=== PATIENT | male | born 1975 ===

== ENCOUNTER 2018-02-06 14:36 | Inpatient (IN) | payer SELFPAY ==
[~2018-02-06] VITALS: Ht 182.9 cm; Wt 84.1 kg
[~2018-02-06 14:36] MED LIST: AMX500CRX PO; DCS100C PO; HYDR-3714 PO; HYDR1TAB66 PO
--- OUTSIDE RECORDS SUMMARY | 2018-02-06 14:43 | XMS REPORT ---
Author CODY Castro [facility] Address [address] [place] [address] Care Team Providers Care Boilermaker Pipe Fitter Name Role Phone CODY HOGUE Unavailable PROBLEMS Unknown Problems ALLERGIES Unknown Allergies SOCIAL HISTORY No smoking Hx information available PLAN OF CARE VITAL SIGNS MEDICATIONS Unknown Medications RESULTS No Results PROCEDURES No Known procedures IMMUNIZATIONS No Known Immunizations
--- OUTSIDE RECORDS SUMMARY | 2018-02-06 14:43 | XMS REPORT ---
Author [facility] Address [address] [place] [address] Care Team Providers Care Depalletizer Operator Name Role Phone CODY HOGUE Unavailable PROBLEMS Type Condition ICD9-CM Code WPA79-AC Code Onset Dates Condition Status SNOMED Code Assessment LUQ pain R10.12 Jul, Active [id number] ALLERGIES Substance Reaction Event Type Date Status N.K.D.A. Unknown Non Drug Allergy Jul, Unknown SOCIAL HISTORY No smoking Hx information available PLAN OF CARE VITAL SIGNS Height 72 in 2016-07-16 Weight 168.0 lbs 2016-07-16 Heart Rate 115 bpm 2016-07-16 Respiratory Rate 18 2016-07-16 BMI 22.78 kg/m2 2016-07-16 Blood pressure systolic 100 mmHg 2016-07-16 Blood pressure diastolic 70 mmHg 2016-07-16 MEDICATIONS Unknown Medications RESULTS Name Result Date Reference Range CMP 2016-07-16 Glucose, Serum 85 65-99 BUN 10 6-24 Creatinine, Serum 0.79 0.76-1.27 eGFR If NonAfricn Am 112 >59 eGFR If Africn Am 130 >59 BUN/Creatinine Ratio 13 9-20 Sodium, Serum 149 134-144 Potassium, Serum 4.1 3.5-5.2 Chloride, Serum 105 97-108 Carbon Dioxide, Total 23 18-29 Calcium, Serum 9.1 8.7-10.2 Protein, Total, Serum 7.2 6.0-8.5 Albumin, Serum 4.4 3.5-5.5 Globulin, Total 2.8 1.5-4.5 A/G Ratio 1.6 1.1-2.5 Bilirubin, Total <0.2 0.0-1.2 Alkaline Phosphatase, S 74 39-117 AST (SGOT) 27 0-40 ALT (SGPT) 23 0-44 CBC 2016-07-16 WBC 7.8 3.4-10.8 RBC 4.94 4.14-5.80 Hemoglobin 17.3 12.6-17.7 Hematocrit 49.9 37.5-51.0 MCV 101 79-97 MCH 35.0 26.6-33.0 MCHC 34.7 31.5-35.7 RDW 14.1 12.3-15.4 Platelets 212 150-379 Neutrophils 51 Lymphs 41 Monocytes 6 Eos 1 Basos 1 Immature Cells Neutrophils (Absolute) 4.1 1.4-7.0 Lymphs (Absolute) 3.2 0.7-3.1 Monocytes(Absolute) 0.4 0.1-0.9 Eos (Absolute) 0.1 0.0-0.4 Baso (Absolute) 0.0 0.0-0.2 Immature Granulocytes 0 Immature Grans (Abs) 0.0 0.0-0.1 NRBC Hematology Comments: PROCEDURES Procedure Date Ordered Related Diagnosis Body Site COMPLETE CBC W/AUTO DIFF WBC Jul 16, 2016 COMPREHEN METABOLIC PANEL Jul 16, 2016 Office Visit, Est Pt., Level 3 Jul 16, 2016 VENIPUNCT, ROUTINE* Jul 16, 2016 IMMUNIZATIONS No Known Immunizations
--- OUTSIDE RECORDS SUMMARY | 2018-02-06 14:43 | XMS REPORT | Continuity of Care Document ---
Author Author [facility] [place] [facility] Address Unknown Phone Unavailable Allergies There is no data. Medications There is no data. Problems Date Dx Coded Attending Type Code Diagnosis Diagnosed By 09/18/2013 CODY HOGUE APRN 521.00 CARIES 09/18/2013 CODY HOGUE APRN 553.1 UMBILICAL HERNIA 09/18/2013 CODY HOGUE APRN V04.81 FLU SHOT 09/18/2013 CODY HOGUE APRN V77.1 visit for: screening exam diabetes mellitus 09/18/2013 ASHLYN SIMON DO 521.00 CARIES 09/18/2013 ASHLYN SIMON DO 553.1 UMBILICAL HERNIA 09/18/2013 ASHLYN SIMON DO V04.81 FLU SHOT 09/18/2013 ASHLYN SIMON DO V77.1 visit for: screening exam diabetes mellitus Procedures Code Description [place] [address] US ABDOMEN ULTRASOUND, LIMITED (SPECIFY ORGAN) 09/18/2013 05869 ROUTINE VENIPUNCTURE 09/23/2013 80275 LIPID PANEL 09/23/2013 00688 CBC 09/23/2013 [id number] GFR CALC (RESULT ONLY) 09/23/2013 91584 CMP 09/23/2013 THYANA THYROID ANALYZER 09/23/2013 General S Kishore Green 09/24/2013 88923 VIT B 12 09/24/2013 70169 FOLATE 09/24/2013 Results There is no data. Encounters ACCT No. Visit Date/Time Discharge Status Pt. Type Provider Facility Loc./Unit Complaint [id number] 09/23/2013 08:26:00 09/23/2013 23:59:59 CLS Outpatient ASHLYN SIMON DO [id number] 09/18/2013 09:23:00 09/18/2013 23:59:59 CLS Outpatient CODY HOGUE APRN [id number] 12/03/2017 09:55:00 12/03/2017 23:59:59 CLS Outpatient CODY HOGUE APRN [facility] [id number] 10/29/2013 06:12:00 10/29/2013 11:07:00 DIS Outpatient [id number] 10/22/2013 09:24:00 10/22/2013 23:59:59 CLS Outpatient [id number] 09/22/2013 07:58:00 09/22/2013 23:59:59 CLS Outpatient
--- OUTSIDE RECORDS SUMMARY | 2018-02-06 14:43 | XMS REPORT ---
Author CODY Castro [facility] Address [address] [place] [address] Care Team Providers Care Community Health Nurse Staff Name Role Phone CODY HOGUE Unavailable PROBLEMS Unknown Problems ALLERGIES Unknown Allergies SOCIAL HISTORY No smoking Hx information available PLAN OF CARE VITAL SIGNS MEDICATIONS Unknown Medications RESULTS No Results PROCEDURES No Known procedures IMMUNIZATIONS No Known Immunizations
[2018-02-06] MEDS ORDERED: LORazepam INJ 2 MG/ML (ATIVAN) VIAL ONE (14:49)
[2018-02-06] MEDS ORDERED: LACTATED RINGERS 1,000 ML IV ONE ×2 (14:52→16:32)
[2018-02-06] MEDS: LORazepam INJ 2 MG/ML (ATIVAN) VIAL IVP ONE ×2 (14:55→15:39)
[2018-02-06 15:04] LABS: BASOPHILS % (AUTO) 0 % (0-10); EOSINOPHILS % (AUTO) 0 % (0-10); HEMATOCRIT 49 % (40-54); HEMOGLOBIN 17.6 G/DL (13.3-17.7); LYMPHOCYTES # (AUTO) 1.6 X 10^3 (1.0-4.0); LYMPHOCYTES % (AUTO) 17 % (12-44); MEAN CORPUSCULAR HEMOGLOBIN 35 PG (25-34); MEAN CORPUSCULAR HGB CONC 36 G/DL (32-36); MEAN CORPUSCULAR VOLUME 97 FL (80-99); MEAN PLATELET VOLUME 10.6 FL (7.4-10.4); MONOCYTES # (AUTO) 1.1 X 10^3 (0.0-1.0); MONOCYTES % (AUTO) 12 % (0-12); NEUTROPHILS # (AUTO) 6.8 X 10^3 (1.8-7.8); NEUTROPHILS % (AUTO) 72 % (42-75); PLATELET COUNT 175 10^3/uL (130-400); RED CELL DISTRIBUTION WIDTH 14.2 % (10.0-14.5); WHITE BLOOD COUNT 9.5 10^3/uL (4.3-11.0)
--- NOTE | 2018-02-06 15:15 | ED General ---
General Chief Complaint: Rect Problems Stated Complaint: HEMRHOIDAL BLEEDING,BP ISSUES Source of Information: Patient Exam Limitations: No Limitations History of Present Illness Date Seen by Provider: Feb 06, 2018 Time Seen by Provider: 14:35 Initial Comments Here with report of alcohol withdrawals and rectal bleeding per evaluation visit with [facility] in [facility]. He reports that he drinks 3 days a week and does not drink for 4 days a week. This last 3 days he's had about a fifth of alcohol a day. He arrives hypertensive and shaking. He has not had anything to drink since yesterday. Reports that he has hemorrhoids and has had them for many years. Also reports that is been drinking for many years. Denies vomiting blood. States stool is dark and has the blood on it from the hemorrhoids. Does note bloody leakage in his underwear. Reports that he wants to stop drinking and needs to stop drinking because he is getting kicked out of his mother's house Timing/Duration: 3-4 Days Severity: Moderate Associated Systoms: No Chest Pain, No Fever/Chills, No Nausea/Vomiting, No Shortness of Air, No Weakness Allergies and Home Medications Allergies Coded Allergies: No Known Drug Allergies (Unverified , 10/29/13) Home Medications Docusate Sodium 100 Mg Capsule, 100 MG PO BID Prescribed by: LACI SIMON on 10/29/13 1017 Hydrocodone Bit/Acetaminophen 1 Each Tablet, 1 EACH PO Q6HR PRN, (Reported) Hydrocodone Bit/Acetaminophen 1 Each Tablet, 1 TAB PO Q4H PRN for PAIN Prescribed by: LACI SIMON on 10/29/13 1017 Patient Home Medication List Home Medication List Reviewed: Yes Review of Systems Constitutional: see HPI, No chills, No fever EENTM: no symptoms reported Respiratory: No cough, No short of breath Cardiovascular: No edema, No palpitations Gastrointestinal: see HPI, No abdominal pain, No diarrhea, No hematemesis Genitourinary: No dysuria, No pain Musculoskeletal: no symptoms reported Skin: no symptoms reported Psychiatric/Neurological: Anxiety, Tremors, Denies Weakness All Other Systems Reviewed Negative Unless Noted: Yes Past Jdtnvms-Koaila-Vpttlg Hx Past Med/Social Hx: Reviewed and Corrections made Patient Social History Alcohol Use: Regular Use Alcohol Beverage of Choice: Whiskey Recreational Drug Use: No Smoking Status: Current Everyday Smoker Recent Foreign Travel: No Contact w/Someone Who Travel: No Immunizations Up To Date Date of Influenza Vaccine: Sep 04, 2013 Seasonal Allergies Seasonal Allergies: No Past Medical History Surgeries: Yes Appendectomy Respiratory: No Cardiac: No Neurological: No Genitourinary: No Gastrointestinal: Yes Hemorrhoids Musculoskeletal: No Endocrine: No Psychosocial: No Family Medical History No Pertinent Family Hx Physical Exam Vital Signs Vital Signs - First Documented 02/06/18 14:40 Temp 98.4 Pulse 109 Resp 16 B/P (MAP) 185/118 (140) Pulse Ox 97 O2 Delivery Room Air Capillary Refill : General Appearance: No Apparent Distress, WD/WN HEENT: PERRL/EOMI, Pharynx Normal Neck: Non Tender, Supple Respiratory: Lungs Clear, Normal Breath Sounds Cardiovascular: Normal Peripheral Pulses, Tachycardia Gastrointestinal: Non Tender, Soft Rectal: Normal Rectal Tone, Blood Streaked Stool, Hemorrhoids, Tenderness, Other (several external hemorrhoids that are greater on the right than left. Large thrombosed hemorrhoid on the right. There is a small bleeding area on the central hemorrhoid.) Back: Normal Inspection, No CVA Tenderness, No Vertebral Tenderness Extremity: Normal Range of Motion, Non Tender Neurologic/Psychiatric: Alert, Oriented x3 Skin: Normal Color, Warm/Dry Progress/Results/Core Measures Suspected Sepsis SIRS Temperature: Pulse: Respiratory Rate: Laboratory Tests 02/06/18 14:53: White Blood Count 9.5 Blood Pressure / Mean: Laboratory Tests 02/06/18 14:53: Creatinine 0.83, Platelet Count 175, Total Bilirubin 1.5H Results/Orders Lab Results Laboratory Tests Test 02/06/18 14:53 02/06/18 15:50 Range/Units White Blood Count 9.5 4.3-11.0 10^3/uL Red Blood Count 5.00 4.35-5.85 10^6/uL Hemoglobin 17.6 13.3-17.7 G/DL Hematocrit 49 40-54 % Mean Corpuscular Volume 97 80-99 FL Mean Corpuscular Hemoglobin 35 H 25-34 PG Mean Corpuscular Hemoglobin Concent 36 32-36 G/DL Red Cell Distribution Width 14.2 10.0-14.5 % Platelet Count 175 130-400 10^3/uL Mean Platelet Volume 10.6 H 7.4-10.4 FL Neutrophils (%) (Auto) 72 42-75 % Lymphocytes (%) (Auto) 17 12-44 % Monocytes (%) (Auto) 12 0-12 % Eosinophils (%) (Auto) 0 0-10 % Basophils (%) (Auto) 0 0-10 % Neutrophils # (Auto) 6.8 1.8-7.8 X 10^3 Lymphocytes # (Auto) 1.6 1.0-4.0 X 10^3 Monocytes # (Auto) 1.1 H 0.0-1.0 X 10^3 Eosinophils # (Auto) 0.0 0.0-0.3 10^3/uL Basophils # (Auto) 0.0 0.0-0.1 10^3/uL Sodium Level 138 135-145 MMOL/L Potassium Level 3.6 3.6-5.0 MMOL/L Chloride Level 100 98-107 MMOL/L Carbon Dioxide Level 25 21-32 MMOL/L Anion Gap 13 5-14 MMOL/L Blood Urea Nitrogen 9 7-18 MG/DL Creatinine 0.83 0.60-1.30 MG/DL Estimat Glomerular Filtration Rate > 60 BUN/Creatinine Ratio 11 Glucose Level 108 H 70-105 MG/DL Calcium Level 9.7 8.5-10.1 MG/DL Total Bilirubin 1.5 H 0.1-1.0 MG/DL Aspartate Amino Transf (AST/SGOT) 26 5-34 U/L Alanine Aminotransferase (ALT/SGPT) 25 0-55 U/L Alkaline Phosphatase 87 40-136 U/L Total Protein 7.8 6.4-8.2 GM/DL Albumin 4.7 H 3.2-4.5 GM/DL Salicylates Level < 5.0 L 5.0-20.0 MG/DL Acetaminophen Level < 10 L 10-30 UG/ML Serum Alcohol < 10 <10 MG/DL Urine Color EMILY H Urine Clarity CLEAR Urine pH 6 5-9 Urine Specific Nimitz 1.015 L 1.016-1.022 Urine Protein 2+ H NEGATIVE Urine Glucose (UA) NEGATIVE NEGATIVE Urine Ketones 3+ H NEGATIVE Urine Nitrite NEGATIVE NEGATIVE Urine Bilirubin NEGATIVE NEGATIVE Urine Urobilinogen NORMAL NORMAL MG/DL Urine Leukocyte Esterase 1+ H NEGATIVE Urine RBC (Auto) 2+ H NEGATIVE Urine RBC 0-2 /HPF Urine WBC 0-2 /HPF Urine Crystals NONE /LPF Urine Bacteria NONE /HPF Urine Casts NONE /LPF Urine Mucus NEGATIVE /LPF Urine Culture Indicated NO Urine Opiates Screen NEGATIVE NEGATIVE Urine Oxycodone Screen NEGATIVE NEGATIVE Urine Methadone Screen NEGATIVE NEGATIVE Urine Propoxyphene Screen NEGATIVE NEGATIVE Urine Barbiturates Screen NEGATIVE NEGATIVE Ur Tricyclic Antidepressants Screen NEGATIVE NEGATIVE Urine Phencyclidine Screen NEGATIVE NEGATIVE Urine Amphetamines Screen NEGATIVE NEGATIVE Urine Methamphetamines Screen NEGATIVE NEGATIVE Urine Benzodiazepines Screen NEGATIVE NEGATIVE Urine Cocaine Screen NEGATIVE NEGATIVE Urine Cannabinoids Screen NEGATIVE NEGATIVE My Orders Orders - CHAYA ELLIOTT MD Ua Culture If Indicated (02/06/18 14:52) Cbc With Automated Diff (02/06/18 14:52) Comprehensive Metabolic Panel (02/06/18 14:52) Alcohol (02/06/18 14:52) Drug Screen Stat (Urine) (02/06/18 14:52) Acetaminophen (02/06/18 14:52) Salicylate (02/06/18 14:52) Ekg Tracing (02/06/18 14:52) Saline Lock/Iv-Start (02/06/18 14:52) Monitor-Rhythm Ecg Trace Only (02/06/18 14:52) Saline Lock/Iv-Start (02/06/18 14:52) Lactated Ringers (Lr 1000 Ml Iv Solution (02/06/18 14:52) Lorazepam Injection (Ativan Injection) (02/06/18 15:00) Lorazepam Injection (Ativan Injection) (02/06/18 14:49) Fecal Occult Bedside (02/06/18 15:48) Saline Lock/Iv-Start (02/06/18 16:32) Lr 1000ml Iv (02/06/18 16:32) Medications Given in ED Current Medications Medications Dose Ordered Sig/Tolu Route Start Time Stop Time Status Last Admin Dose Admin Lactated Ringer's 1,000 ml @ 0 mls/hr Q0M ONCE IV 02/06/18 14:52 02/06/18 14:55 DC 02/06/18 15:00 1,000 MLS/HR Lorazepam 1 mg ONCE ONCE IVP 02/06/18 15:00 02/06/18 15:01 DC 02/06/18 14:55 1 MG Vital Signs/I&O Vital Sign - Last 12Hours 02/06/18 14:40 Temp 98.4 Pulse 109 Resp 16 B/P (MAP) 185/118 (140) Pulse Ox 97 O2 Delivery Room Air Capillary Refill : Progress Note : Progress Note Seen and evaluated. IV, labs, UA and EKG ordered. LR 1 L bolus. Hemoccult stool done. Patient has several fairly prominent hemorrhoids. One of the hemorrhoids in the medial aspect did have old blood on it but knows significant bleeding currently. Tender on rectal exam . Rectal vault was empty. Ativan 1 mg IV for significant tremors and hypertension. Monitor patient. 1616: I discussed the case with Dr. Wadsworth. Patient does have tremors and hypertension and is showing signs of acute alcohol withdrawal. Due to these findings, patient will be admitted to the hospital for symptom management related to that. Patient also is fairly dry and we will repeat LR 1 L bolus. All findings and concerns were discussed with the patient and family who agree with admission. ECG Initial ECG Impression Date: Feb 06, 2018 Initial ECG Impression Time: 14:59 Initial ECG Rate: 94 Initial ECG Rhythm: Normal Sinus Initial ECG Intervals: Normal Comment Sinus rhythm with left atrial abnormality. Leftward axis. No evidence of ST elevation VT. No previous available for comparison. Interpreted by me. Departure Communication (Admissions) Time/Spoke to Admitting Phy: 16:16 Impression Primary Impression: Alcohol withdrawal syndrome Qualified Codes: F10.230 - Alcohol dependence with withdrawal, uncomplicated Additional Impression: Hemorrhoids Qualified Codes: K64.9 - Unspecified hemorrhoids Disposition: ADMITTED INPATIENT Condition: Stable Admissions Decision to Admit Reason: Admit from ER (General) Decision to Admit/Date: Feb 06, 2018 Time/Decision to Admit Time: 16:16 Departure-Patient Inst. Referrals: [facility] (PCP[facility]Family) Primary Care Physician CHAYA ELLIOTT MD Feb 06, 2018 15:15
[2018-02-06 15:23] LABS: ALANINE AMINOTRANSFERASE 25 U/L (0-55); ALBUMIN 4.7 GM/DL (3.2-4.5); ALKALINE PHOSPHATASE 87 U/L (40-136); BILIRUBIN,TOTAL 1.5 MG/DL (0.1-1.0); BUN/CREATININE RATIO 11; CALCIUM 9.7 MG/DL (8.5-10.1); CARBON DIOXIDE 25 MMOL/L (21-32); CHLORIDE 100 MMOL/L (98-107); CREATININE SERUM 0.83 MG/DL (0.60-1.30); GFR ESTIMATED > 60; GLUCOSE 108 MG/DL (70-105); POTASSIUM 3.6 MMOL/L (3.6-5.0); SALICYLATE < 5.0 MG/DL (5.0-20.0); SODIUM 138 MMOL/L (135-145); TOTAL PROTEIN 7.8 GM/DL (6.4-8.2)
[2018-02-06 15:26] LABS: ACETAMINOPHEN < 10 UG/ML (10-30)
[2018-02-06 15:59] LABS: BILIRUBIN,URINE NEGATIVE (NEGATIVE); CLARITY,URINE CLEAR; COLOR,URINE AMBER; GLUCOSE, URINE (UA) NEGATIVE (NEGATIVE); KETONES,URINE 3+ (NEGATIVE); LEUKOCYTE ESTERASE ,URINE 1+ (NEGATIVE); NITRITE,URINE NEGATIVE (NEGATIVE); PH,URINE 6 (5-9); PROTEIN,URINE 2+ (NEGATIVE); UROBILINOGEN,URINE NORMAL (NORMAL)
[2018-02-06 16:10] LABS: RBC,URINE 0-2 /HPF; WBC,URINE 0-2 /HPF
[2018-02-06 16:25] LABS: AMPHETAMINE SCREEN, URINE NEGATIVE (NEGATIVE); BARBITURATE SCREEN URINE NEGATIVE (NEGATIVE); BENZODIAZEPINES SCREEN URINE NEGATIVE (NEGATIVE); CANNABINOID SCREEN, URINE NEGATIVE (NEGATIVE); COCAINE SCREEN URINE NEGATIVE (NEGATIVE); METHADONE STAT NEGATIVE (NEGATIVE); METHAMPHETAMINE SCREEN URINE S NEGATIVE (NEGATIVE); OPIATE SCREEN URINE NEGATIVE (NEGATIVE); OXYCODONE STAT NEGATIVE (NEGATIVE); PROPOXYPHENE STAT NEGATIVE (NEGATIVE); TRICYCLIC ANTIDEPRESSANTS SCRE NEGATIVE (NEGATIVE)
--- OUTSIDE RECORDS SUMMARY | 2018-02-06 16:52 | XMS REPORT | Continuity of Care Document ---
Author Author [facility] Address Unknown Phone Unavailable Allergies There is [...] Procedures Code Description [place] [address] US ABDOMEN ULTRASOUND, LIMITED (SPECIFY ORGAN) 09/18/2013 31411 ROUTINE VENIPUNCTURE 09/23/2013 10523 LIPID PANEL 09/23/2013 51280 CBC 09/23/2013 [id number] GFR CALC (RESULT ONLY) 09/23/2013 59927 CMP 09/23/2013 THYANA THYROID ANALYZER 09/23/2013 [facility] Kishore Green 09/24/2013 23505 VIT B 12 09/24/2013 09978 FOLATE 09/24/2013 Results Test Result Range Complete blood count (CBC) with automated white blood cell (WBC) differential - 02/06/18 14:53 Blood leukocytes automated count (number/volume) 9.5 10*3/uL 4.3-11.0 Blood erythrocytes automated count (number/volume) 5.00 10*6/uL 4.35-5.85 Venous blood hemoglobin measurement (mass/volume) 17.6 g/dL 13.3-17.7 Blood hematocrit (volume fraction) 49 % 40-54 Automated erythrocyte mean corpuscular volume 97 [foz_us] 80-99 Automated erythrocyte mean corpuscular hemoglobin (mass per erythrocyte) 35 pg 25-34 Automated erythrocyte mean corpuscular hemoglobin concentration measurement ( mass/volume) 36 g/dL 32-36 Automated erythrocyte distribution width ratio 14.2 % 10.0-14.5 Automated blood platelet count (count/volume) 175 10*3/uL 130-400 Automated blood platelet mean volume measurement 10.6 [foz_us] 7.4-10.4 Automated blood neutrophils/100 leukocytes 72 % 42-75 Automated blood lymphocytes/100 leukocytes 17 % 12-44 Blood monocytes/100 leukocytes 12 % 0-12 Automated blood eosinophils/100 leukocytes 0 % 0-10 Automated blood basophils/100 leukocytes 0 % 0-10 Blood neutrophils automated count (number/volume) 6.8 10*3 1.8-7.8 Blood lymphocytes automated count (number/volume) 1.6 10*3 1.0-4.0 Blood monocytes automated count (number/volume) 1.1 10*3 0.0-1.0 Automated eosinophil count 0.0 10*3/uL 0.0-0.3 Automated blood basophil count (count/volume) 0.0 10*3/uL 0.0-0.1 Comprehensive metabolic panel - 02/06/18 14:53 Serum or plasma sodium measurement (moles/volume) 138 mmol/L 135-145 Serum or plasma potassium measurement (moles/volume) 3.6 mmol/L 3.6-5.0 Serum or plasma chloride measurement (moles/volume) 100 mmol/L 98-107 Carbon dioxide 25 mmol/L 21-32 Serum or plasma anion gap determination (moles/volume) 13 mmol/L 5-14 Serum or plasma urea nitrogen measurement (mass/volume) 9 mg/dL 7-18 Serum or plasma creatinine measurement (mass/volume) 0.83 mg/dL 0.60-1.30 Serum or plasma urea nitrogen/creatinine mass ratio 11 NRG Serum or plasma creatinine measurement with calculation of estimated glomerular filtration rate > NRG Serum or plasma glucose measurement (mass/volume) 108 mg/dL 70-105 Serum or plasma calcium measurement (mass/volume) 9.7 mg/dL 8.5-10.1 Serum or plasma total bilirubin measurement (mass/volume) 1.5 mg/dL 0.1-1.0 Serum or plasma alkaline phosphatase measurement (enzymatic activity/volume) 87 U/L 40-136 Serum or plasma aspartate aminotransferase measurement (enzymatic activity/ volume) 26 U/L 5-34 Serum or plasma alanine aminotransferase measurement (enzymatic activity/volume ) 25 U/L 0-55 Serum or plasma protein measurement (mass/volume) 7.8 g/dL 6.4-8.2 Serum or plasma albumin measurement (mass/volume) 4.7 g/dL 3.2-4.5 Serum or plasma salicylates measurement (mass/volume) - 02/06/18 14:53 Serum or plasma salicylates measurement (mass/volume) < mg/dL 5.0-20.0 Serum or plasma acetaminophen measurement (mass/volume) - 02/06/18 14:53 Serum or plasma acetaminophen measurement (mass/volume) < ug/mL 10-30 Serum or plasma ethanol measurement (mass/volume) - 02/06/18 14:53 Serum or plasma ethanol measurement (mass/volume) < mg/dL <10 Complete urinalysis with reflex to culture - 02/06/18 15:50 Urine color determination EMILY NRG Urine clarity determination CLEAR NRG Urine pH measurement by test strip 6 5-9 Specific gravity of urine by test strip 1.015 1.016- 1.022 Urine protein assay by test strip, semi-quantitative 2+ NEGATIVE Urine glucose detection by automated test strip NEGATIVE NEGATIVE Erythrocytes detection in urine sediment by light microscopy 2+ NEGATIVE Urine ketones detection by automated test strip 3+ NEGATIVE Urine nitrite detection by test strip NEGATIVE NEGATIVE Urine total bilirubin detection by test strip NEGATIVE NEGATIVE Urine urobilinogen measurement by automated test strip (mass/volume) NORMAL NORMAL Urine leukocyte esterase detection by dipstick 1+ NEGATIVE Automated urine sediment erythrocyte count by microscopy (number/high power field) [HPF] NRG Automated urine sediment leukocyte count by microscopy (number/high power field ) [HPF] NRG Bacteria detection in urine sediment by light microscopy NONE NRG Crystals detection in urine sediment by light microscopy NONE NRG Casts detection in urine sediment by light microscopy NONE NRG Mucus detection in urine sediment by light microscopy NEGATIVE NRG Complete urinalysis with reflex to culture NO NRG Urine drug screening test - 02/06/18 15:50 Urine phencyclidine detection by screening method NEGATIVE NEGATIVE Urine benzodiazepines detection by screening method NEGATIVE NEGATIVE Urine cocaine detection NEGATIVE NEGATIVE Urine amphetamines detection by screening method NEGATIVE NEGATIVE Urine methamphetamine detection by screening method NEGATIVE NEGATIVE Urine cannabinoids detection by screening method NEGATIVE NEGATIVE Urine opiates detection by screening method NEGATIVE NEGATIVE Urine barbiturates detection NEGATIVE NEGATIVE Screening urine tricyclic antidepressants detection NEGATIVE NEGATIVE Urine methadone detection by screening method NEGATIVE NEGATIVE Urine oxycodone detection NEGATIVE NEGATIVE Urine propoxyphene detection NEGATIVE NEGATIVE Encounters ACCT No. Visit Date/Time Discharge Status Pt. Type Provider Facility Loc./Unit Complaint [id number] 09/23/2013 08:26:00 09/23/2013 23:59:59 CLS Outpatient [facility] ASHLYN Jazmín [id number] 09/18/2013 09:23:00 09/18/2013 23:59:59 CLS Outpatient CODY HOGUE APRN [id number] 12/03/2017 09:55:00 12/03/2017 23:59:59 CLS Outpatient CODY HOGUE APRN [facility] [id number] 10/29/2013 06:12:00 10/29/2013 11:07:00 DIS Outpatient [id number] 10/22/2013 09:24:00 10/22/2013 23:59:59 CLS Outpatient [id number] 09/22/2013 07:58:00 09/22/2013 23:59:59 CLS Outpatient [id number] 02/06/2018 15:07:00 Document Registration
[2018-02-06 17:20] VITALS: BP 174/91
[2018-02-06] MEDS ORDERED: 1/2 NS IV SOLUTION 1,000 ML IV PRN (17:37)
[2018-02-06] MEDS: NS IV 1000 ML 1,000 ML IV SCH (17:41)
[2018-02-06] MEDS: MAGNESIUM OXIDE (MAG-OX)400 MG TAB PO SCH (17:41)
[2018-02-06] MEDS: THIAMINE 100 MG (VITAMIN B-1) TAB PO SCH (17:43)
[2018-02-06] MEDS: MULTIVIT W/MINERALS TAB (THERAGRAN M) PO SCH (17:43)
[2018-02-06] MEDS: FOLIC ACID 1 MG TAB PO SCH (17:43)
[2018-02-06] MEDS ORDERED: LORazepam 1 MG (ATIVAN) TAB PO PRN (17:45)
[2018-02-06] MEDS ORDERED: ONDANSETRON 4 MG (ZOFRAN) ORAL DISSOLVE TAB SL PRN (17:45)
[2018-02-06] MEDS ORDERED: SENNA W/DOCUSATE (SENOKOT S) TABLET PO PRN (17:45)
[2018-02-06] MEDS ORDERED: LORazepam INJ 2 MG/ML (ATIVAN) VIAL IV PRN (17:45)
[2018-02-06] MEDS ORDERED: LORazepam INJ 2 MG/ML (ATIVAN) VIAL IM/IV PRN (17:45)
[2018-02-06] MEDS ORDERED: D5 1/2 NS 1000 ML IV SOLUTION 1,000 ML IV PRN (17:45)
[2018-02-06] MEDS ORDERED: ONDANSETRON 4 MG/2 ML (SDV) Z0FRAN IV PRN (17:45)
[2018-02-06] MEDS ORDERED: ANTACID SUSP 30 ML UDC (MYLANTA) PO PRN (17:45)
[2018-02-06 18:50] VITALS: BP 164/92
[2018-02-06] MEDS ORDERED: RT-ALBUTEROL SULF 2.5 MG/3 ML PRE-MIX VIAL INH PRN (19:30)
[2018-02-06 19:53] VITALS: BP 167/90
[2018-02-06] MEDS ORDERED: NICOTINE 21 MG (NICODERM) PATCH TD NR (21:00)
[2018-02-07 00:10] VITALS: BP 151/77
[2018-02-07] MEDS: NS IV 1000 ML 1,000 ML IV SCH ×3 (03:06→21:48)
[2018-02-07 06:25] LABS: BASOPHILS % (AUTO) 0 % (0-10); EOSINOPHILS # (AUTO) 0.1 10^3/uL (0.0-0.3); EOSINOPHILS % (AUTO) 1 % (0-10); HEMATOCRIT 43 % (40-54); HEMOGLOBIN 15.3 G/DL (13.3-17.7); LYMPHOCYTES # (AUTO) 1.7 X 10^3 (1.0-4.0); LYMPHOCYTES % (AUTO) 36 % (12-44); MEAN CORPUSCULAR HEMOGLOBIN 35 PG (25-34); MEAN CORPUSCULAR HGB CONC 35 G/DL (32-36); MEAN CORPUSCULAR VOLUME 98 FL (80-99); MEAN PLATELET VOLUME 10.8 FL (7.4-10.4); MONOCYTES # (AUTO) 0.7 X 10^3 (0.0-1.0); MONOCYTES % (AUTO) 14 % (0-12); NEUTROPHILS # (AUTO) 2.3 X 10^3 (1.8-7.8); NEUTROPHILS % (AUTO) 48 % (42-75); PLATELET COUNT 140 10^3/uL (130-400); RED CELL DISTRIBUTION WIDTH 13.9 % (10.0-14.5); WHITE BLOOD COUNT 4.8 10^3/uL (4.3-11.0)
[2018-02-07] MEDS: FOLIC ACID 1 MG TAB PO SCH (06:37)
[2018-02-07] MEDS: MAGNESIUM OXIDE (MAG-OX)400 MG TAB PO SCH ×2 (06:37→18:14)
[2018-02-07] MEDS: MULTIVIT W/MINERALS TAB (THERAGRAN M) PO SCH (06:37)
[2018-02-07] MEDS: THIAMINE 100 MG (VITAMIN B-1) TAB PO SCH (06:37)
[2018-02-07 06:40] LABS: ALANINE AMINOTRANSFERASE 21 U/L (0-55); ALBUMIN 3.6 GM/DL (3.2-4.5); ALKALINE PHOSPHATASE 77 U/L (40-136); BUN/CREATININE RATIO 9; CALCIUM 8.4 MG/DL (8.5-10.1); CARBON DIOXIDE 25 MMOL/L (21-32); CHLORIDE 109 MMOL/L (98-107); CREATININE SERUM 0.67 MG/DL (0.60-1.30); GFR ESTIMATED > 60; GLUCOSE 110 MG/DL (70-105); POTASSIUM 3.8 MMOL/L (3.6-5.0); SODIUM 140 MMOL/L (135-145); TOTAL PROTEIN 5.9 GM/DL (6.4-8.2)
[2018-02-07] MEDS ORDERED: MULT1CAP14 PO (08:22)
[2018-02-07 08:38] VITALS: BP 167/94
[2018-02-07] MEDS ORDERED: NICOTINE PATCH REMOVAL TP SCH (08:59)
[2018-02-07] MEDS ORDERED: PREPARATION H OINTMENT 57 GR TUBE PR PRN (12:00)
--- NOTE | 2018-02-07 12:02 | History & Physicial (CHS) ---
HPI History of Present Illness: This is a 42 yo male patient who is scheduled to establish care w/ Amberly Rogers at the [facility] (formerly [facility]) later this month. Pt present to the ER with alcohol withdrawal. Pt has a history of chronic alcohol use but has had an increase in alcohol consumption the past week. His last drink was 2 days ago. He presented to the ER in withdrawal with tremors and hypertension. Pt states he sees Pamela at [facility] for Addiction Counseling. He wants to stop drinking and is interested in treatment. Denies prior hx of seizures or DT with alcohol cessation. Pt also report recent hx of hemorrhoids and rectal bleeding. Date seen by provider: Feb 07, 2018 Time Seen by Provider: 10:00 Attending Physician Ashlyn Wadsworth DO [facility] Date of Admission Feb 06, 2018 at 16:48 Home Medications Home Medications Reviewed patient Home Medication Reconciliation performed by pharmacy medication reconciliations lead manufacturing technician and/or nursing. Patients Allergies have been reviewed. Allergies Coded Allergies: fish derived (Unverified Allergy, Mild, 02/07/18) FROM UNCODED ALLERGIES iodine (Unverified Allergy, Mild, 02/07/18) FROM UNCODED ALLERGIES Uncoded Allergies: sea food, iodine (Allergy, Mild, 02/06/18) PYL-Pxrbqd-Kkaoey Hx Patient Social History Alcohol Use: Regular Use Recreational Drug Use: No Smoking Status: Current Everyday Smoker Type Used: Cigarettes 2nd Hand Smoke Exposure: Yes Recent Foreign Travel: No Contact w/other who traveled: No Recent Hopitalizations: No Recent Infectious Disease Expo: No Physical Abuse Screen: No Sexual Abuse: No Immunizations Up To Date Date of Influenza Vaccine: Sep 04, 2013 Past Medical History Hemorrhoids Alcoholism Family Medical History Significant Family History: No Pertinent Family Hx Family History: Diabetes mellitus 19 FATHER ( in 2001 ) Review of Systems ([facility]) Constitutional: see HPI Reviewed Test Results Reviewed Test Results Lab Laboratory Tests 02/06/18 14:53: White Blood Count 9.5, Red Blood Count 5.00, Hemoglobin 17.6, Hematocrit 49, Mean Corpuscular Volume 97, Mean Corpuscular Hemoglobin 35H, Mean Corpuscular Hemoglobin Concent 36, Red Cell Distribution Width 14.2, Platelet Count 175, Mean Platelet Volume 10.6H, Neutrophils (%) (Auto) 72, Lymphocytes (%) (Auto) 17 , Monocytes (%) (Auto) 12, Eosinophils (%) (Auto) 0, Basophils (%) (Auto) 0, Neutrophils # (Auto) 6.8, Lymphocytes # (Auto) 1.6, Monocytes # (Auto) 1.1H, Eosinophils # (Auto) 0.0, Basophils # (Auto) 0.0, Sodium Level 138, Potassium Level 3.6, Chloride Level 100, Carbon Dioxide Level 25, Anion Gap 13, Blood Urea Nitrogen 9, Creatinine 0.83, Estimat Glomerular Filtration Rate > 60, BUN/ Creatinine Ratio 11, Glucose Level 108H, Calcium Level 9.7, Total Bilirubin 1.5H , Aspartate Amino Transf (AST/SGOT) 26, Alanine Aminotransferase (ALT/SGPT) 25, Alkaline Phosphatase 87, Total Protein 7.8, Albumin 4.7H, Salicylates Level < 5.0L, Acetaminophen Level < 10L, Serum Alcohol < 10 02/06/18 15:50: Urine Color AMBERH, Urine Clarity CLEAR, Urine pH 6, Urine Specific [place] 1.015L, Urine Protein 2+H, Urine Glucose (UA) NEGATIVE, Urine Ketones 3+H, Urine Nitrite NEGATIVE, Urine Bilirubin NEGATIVE, Urine Urobilinogen NORMAL, Urine Leukocyte Esterase 1+H, Urine RBC (Auto) 2+H, Urine RBC 0-2, Urine WBC 0-2 , Urine Crystals NONE, Urine Bacteria NONE, Urine Casts NONE, Urine Mucus NEGATIVE, Urine Culture Indicated NO, Urine Opiates Screen NEGATIVE, Urine Oxycodone Screen NEGATIVE, Urine Methadone Screen NEGATIVE, Urine Propoxyphene Screen NEGATIVE, Urine Barbiturates Screen NEGATIVE, Ur Tricyclic Antidepressants Screen NEGATIVE, Urine Phencyclidine Screen NEGATIVE, Urine Amphetamines Screen NEGATIVE, Urine Methamphetamines Screen NEGATIVE, Urine Benzodiazepines Screen NEGATIVE, Urine Cocaine Screen NEGATIVE, Urine Cannabinoids Screen NEGATIVE 02/07/18 06:06: White Blood Count 4.8, Red Blood Count 4.40, Hemoglobin 15.3, Hematocrit 43, Mean Corpuscular Volume 98, Mean Corpuscular Hemoglobin 35H, Mean Corpuscular Hemoglobin Concent 35, Red Cell Distribution Width 13.9, Platelet Count 140, Mean Platelet Volume 10.8H, Neutrophils (%) (Auto) 48, Lymphocytes (%) (Auto) 36 , Monocytes (%) (Auto) 14H, Eosinophils (%) (Auto) 1, Basophils (%) (Auto) 0, Neutrophils # (Auto) 2.3, Lymphocytes # (Auto) 1.7, Monocytes # (Auto) 0.7, Eosinophils # (Auto) 0.1, Basophils # (Auto) 0.0, Sodium Level 140, Potassium Level 3.8, Chloride Level 109H, Carbon Dioxide Level 25, Anion Gap 6, Blood Urea Nitrogen 6L, Creatinine 0.67, Estimat Glomerular Filtration Rate > 60, BUN/ Creatinine Ratio 9, Glucose Level 110H, Calcium Level 8.4L, Total Bilirubin 1.0 , Aspartate Amino Transf (AST/SGOT) 23, Alanine Aminotransferase (ALT/SGPT) 21, Alkaline Phosphatase 77, Total Protein 5.9L, Albumin 3.6 Physical Exam-([facility]) Physical Exam Vital Signs VS - Last 72 Hours, by Label 02/06/18 02/06/18 02/06/18 02/06/18 14:40 17:08 17:20 18:24 Temp 98.4 99.2 98.9 Pulse 109 97 93 Resp 16 18 20 B/P (MAP) 185/118 (140) 164/92 174/91 (118) Pulse Ox 97 96 99 96 O2 Delivery Room Air Room Air Room Air Room Air 02/06/18 02/06/18 02/06/18 02/07/18 18:50 19:53 20:00 00:10 Temp 99.2 98.8 Pulse 96 95 65 Resp 20 17 B/P (MAP) 167/90 (115) 151/77 (101) Pulse Ox 94 94 96 O2 Delivery Room Air Room Air Room Air 02/07/18 02/07/18 07:08 08:38 Temp 98.4 Pulse 75 Resp 20 B/P (MAP) 167/94 (118) Pulse Ox 95 93 O2 Delivery Room Air Room Air Capillary Refill : Less Than 3 Seconds General Appearance: WD/WN, no apparent distress HEENT: PERRL/EOMI Respiratory: lungs clear, normal breath sounds Cardiovascular: regular rate, rhythm Gastrointestinal: non tender, soft Neurologic/Psychiatric: alert, other (anxious; mild tremor to the hands) Skin: normal color, warm/dry Assessment/Plan Assessment/Plan Admission Dx 1. Acute alcohol withdrawal 2. Chronic alcohol abuse 3. Hemorrhoids Admission Status: Inpatient Order (span 2 midnights) Reason for Inpatient Admission: alcohol withdrawal Assessment & Plan 1. Acute alcohol withdrawal - Admitted and started on CIWA Withdrawal protocol 2. Chronic alcohol abuse - interested in treatment; social welfare administrator consulted 3. Hemorrhoids w/ bleeding - Hb stable - monitor and treat topically Clinical Quality Measures DVT/VTE Risk/Contraindication: Risk Factor Score Per Nursin RFS Level Per Nursing on Admit: 2=Moderate Risk Score Comment: scds ASHLYN Tena DO Feb 07, 2018 12:02
[2018-02-07 12:30] VITALS: BP 157/89
[2018-02-07] MEDS: NICOTINE 21 MG (NICODERM) PATCH TD SCH (14:21)
[2018-02-07 15:40] VITALS: BP 165/83
[2018-02-08] VITALS: BP 144/76
[2018-02-08] MEDS: NS IV 1000 ML 1,000 ML IV SCH (05:57)
[2018-02-08] MEDS: MAGNESIUM OXIDE (MAG-OX)400 MG TAB PO SCH (06:50)
[2018-02-08] MEDS: MULTIVIT W/MINERALS TAB (THERAGRAN M) PO SCH (06:50)
[2018-02-08] MEDS: THIAMINE 100 MG (VITAMIN B-1) TAB PO SCH (06:50)
[2018-02-08] MEDS: FOLIC ACID 1 MG TAB PO SCH (06:50)
[2018-02-08] MEDS: NICOTINE 21 MG (NICODERM) PATCH TD SCH (08:20)
[2018-02-08 08:36] VITALS: BP 157/93
[2018-02-08] MEDS ORDERED: LISI10TA2 PO (10:31)
--- NOTE | 2018-02-08 10:34 | Discharge Instructions ---
Discharge Inst-[facility] Discharge Medications New, Converted or Re-Newed RX: Transmitted to Pharmacy ([facility]) New Medications: Lisinopril (Lisinopril) 10 Mg Tablet 10 MG PO DAILY, #30 TAB 1 Refill Continued Medications: Multivits-Minerals/FA/Lycopene (Men's Daily Formula Capsule) 1 Each Capsule 1 CAP PO DAILY, CAP Patient Instructions Goal/Follow Up Appt: Keep Establish Care appointment with Amberly Rogers APRN at [facility] on 03/08/18. Follow up with Pamela at [facility] on Saturday. Patient Instructions: Call [facility] if need additional addiction treatment services - Autumn MARTINEZ Nurse Coordinator [phone] Activity & Diet Discharge Diet: No Restrictions ASHLYN SIMON DO Feb 08, 2018 10:34
--- NOTE | 2018-02-08 10:35 | Discharge Summary ---
Diagnosis/Chief Complaint Date of Admission Feb 06, 2018 at 16:48 Date of Discharge Admission Diagnosis Admission Diagnosis 1. Acute alcohol withdrawal 2. Chronic alcohol abuse 3. Hemorrhoids w/ bleeding Discharge Diagnosis 1. Acute alcohol withdrawal - Admitted and started on CIWA Withdrawal protocol 02/08 - has not required Ativan; will DC to home - patient wants to f/u with Pamela at [facility] for alcohol counseling 2. Chronic alcohol abuse - interested in treatment; geriatric social work professor consulted 3. Hemorrhoids w/ bleeding - Hb stable - monitor and treat topically 4. Hypertension - BP elevated throughout hospitalization - DC on Lisinopril 10mg daily - has f/u to Establ[facility] Care at [facility] in [place] on 03/08/18. Chief Complaint/HPI Chief Complaint/HPI This is a 42 yo male patient who is scheduled to establish care w/ Amberly Rogers at the [facility] clinic later this month. Pt present to the ER with alcohol withdrawal. Pt has a history of chronic alcohol use but has had an increase in alcohol consumption the past week. His last drink was 2 days ago. He presented to the ER in withdrawal with tremors and hypertension. Pt states he sees Pamela at [facility] for Addiction Counseling. He wants to stop drinking and is interested in treatment. Denies prior hx of seizures or DT with alcohol cessation. Pt also report recent hx of hemorrhoids and rectal bleeding. Discharge Summary-Simple/Stand Consultations Discharge Physical Examination Allergies: Coded Allergies: fish derived (Unverified Allergy, Mild, 02/07/18) FROM UNCODED ALLERGIES iodine (Unverified Allergy, Mild, 02/07/18) FROM UNCODED ALLERGIES Uncoded Allergies: sea food, iodine (Allergy, Mild, 02/06/18) Vitals & I&Os Vital Sign - Last 12Hours Date Time Temp Pulse Resp B/P (MAP) Pulse Ox O2 Delivery O2 Flow Rate FiO2 02/08/18 08:36 97.5 56 20 157/93 (114) 97 Room Air Intake and Output 02/08/18 00:00 Intake Total 2920 ml Balance 2920 ml General Appearance: Alert, Oriented X3, Cooperative Psych/Mental Status: Mood NL Hospital Course See final discharge diagnosis. Discharge Instructions to patient/family Please see electronic discharge instructions given to patient. Patient Instructions Goal/Follow Up Appt: Keep Establish Care appointment with Amberly Rogers APRN at [facility] on 03/08/18. Follow up with Pamela at [facility] on Saturday. Patient Instructions: Call [facility] if need additional addiction treatment services - Autumn MARTINEZ Nurse Coordinator [phone] Activity & Diet Discharge Diet: No Restrictions Discharge Medications Reviewed and agree with Discharge Medication list on patient's Discharge Instruction sheet Discharge Medications New, Converted or Re-Newed RX: Transmitted to Pharmacy ([facility]) New Medications: Lisinopril (Lisinopril) 10 Mg Tablet 10 MG PO DAILY, #30 TAB 1 Refill Continued Medications: Multivits-Minerals/FA/Lycopene (Men's Daily Formula Capsule) 1 Each Capsule 1 CAP PO DAILY, CAP Clinical Quality Measures DVT/VTE Risk/Contraindication: Risk Factor Score Per Nursin RFS Level Per Nursing on Admit: 2=Moderate Risk Score Comment: scds ASHLYN Tena DO Feb 08, 2018 10:35
[2018-02-08 11:48] VITALS: BP 157/93
== END 2018-02-08 11:15 | disposition home or self-care (01) | DRG 897 ==
LOC: EDUNIT# 14:36 → ER 14:39 → 4TH 16:48
PROVIDERS: ADMIT Family Medicine; ATTEND Family Medicine
DX: F10.230 Alcohol dependence with withdrawal, uncomplicated (principal); K64.9 Unspecified hemorrhoids; F17.210 Nicotine dependence, cigarettes, uncomplicated; I10 Essential (primary) hypertension
CPT/HCPCS: 36415; 80053; 80306; 80320; 80329; 81000; 85025; 93005; 93041; 94760; 96361; 96374

== ENCOUNTER 2018-03-28 05:45 | Outpatient (CLI) | payer SELFPAY ==
[~2018-03-28] VITALS: Ht 182.9 cm; Wt 84.4 kg
[~2018-03-28 05:45] MED LIST changes: +LISI10TA2 PO; +MULT1CAP14 PO
[2018-03-28] MEDS ORDERED: LISI10TA2 PO (15:02)
== END 2018-03-28 15:10 ==
LOC: PREOP 05:45
PROVIDERS: ATTEND Surgery
DX: Z01.818 Encounter for other preprocedural examination (principal); K62.5 Hemorrhage of anus and rectum

== ENCOUNTER 2018-04-02 07:39 | Day surgery (SDC) | payer OTHER ==
[~2018-04-02] VITALS: Ht 182.9 cm; Wt 84.4 kg
[2018-04-02] MEDS ORDERED: LACTATED RINGERS 1,000 ML IV ONE (07:43)
--- OUTSIDE RECORDS SUMMARY | 2018-04-02 07:43 | XMS REPORT | Continuity of Care Document ---
Author Author [facility] Address Unknown Phone Unavailable Allergies Active Description Code Type Severity Reaction Onset Reported/Identified Relationship to Patient Clinical Status Yes No Known Drug Allergies [id number] Drug Allergy Unknown N/A 10/29/2013 Yes sea food, iodine sea food, iodine Mild N/A 02/06/2018 Yes fish derived [id number] Drug Allergy Mild N/A 02/07/2018 Yes iodine [id number] Drug Allergy Mild N/A 02/07/2018 Medications There is no data. Problems Date [...] V77.1 visit for: screening exam diabetes mellitus 10/29/2013 MAINOR VARGAS DO Ot 553.21 INCISIONAL HERNIA 10/29/2013 MAINOR VARGAS DO Ot V74.8 SCREEN-BACTERIAL DIS NEC 02/07/2018 CODY HOGUE APRN Ot 553.1 UMBILICAL HERNIA 02/07/2018 MAINOR VRAGAS DO Ot 553.1 UMBILICAL HERNIA 02/07/2018 MAINOR VARGAS DO Ot V72.60 LABORATORY EXAMINATION, UNSPECIFIED 02/07/2018 CODY HOGUE APRN Ot 553.1 UMBILICAL HERNIA 02/07/2018 MAINOR VARGAS DO Ot 553.1 UMBILICAL HERNIA 02/07/2018 MAINOR VARGAS DO Prudence Ot V72.60 LABORATORY EXAMINATION, UNSPECIFIED 02/08/2018 ASHLYN SIMON DO Ot F10.230 ALCOHOL DEPENDENCE WITH WITHDRAWAL, UNCO 02/08/2018 ASHLYN SIMON DO Jazmín Ot F17.210 NICOTINE DEPENDENCE, CIGARETTES, UNCOMPL 02/08/2018 ASHLYN SIMON DO Jazmín Ot I10 ESSENTIAL (PRIMARY) HYPERTENSION 02/08/2018 ASHLYN SIMON DO Ot K64.9 UNSPECIFIED HEMORRHOIDS Procedures Code [place] [address] US ABDOMEN ULTRASOUND, LIMITED (SPECIFY ORGAN) 09/18/2013 80562 ROUTINE VENIPUNCTURE 09/23/2013 93001 LIPID PANEL 09/23/2013 57910 CBC 09/23/2013 1492268 GFR CALC (RESULT ONLY) 09/23/2013 94721 CMP 09/23/2013 THYANA THYROID ANALYZER 09/23/2013 General S Mainor Vargas 09/24/2013 64998 VIT B 12 09/24/2013 55746 FOLATE 09/24/2013 Results Test Result Range Complete [...] NEGATIVE NEGATIVE Urine propoxyphene detection NEGATIVE NEGATIVE Complete blood count (CBC) with automated white blood cell (WBC) differential - 02/07/18 06:06 Blood leukocytes automated count (number/volume) 4.8 10*3/uL 4.3-11.0 Blood erythrocytes automated count (number/volume) 4.40 10*6/uL 4.35-5.85 Venous blood hemoglobin measurement (mass/volume) 15.3 g/dL 13.3-17.7 Blood hematocrit (volume fraction) 43 % 40-54 Automated erythrocyte mean corpuscular volume 98 [foz_us] 80-99 Automated erythrocyte mean corpuscular hemoglobin (mass per erythrocyte) 35 pg 25-34 Automated erythrocyte mean corpuscular hemoglobin concentration measurement ( mass/volume) 35 g/dL 32-36 Automated erythrocyte distribution width ratio 13.9 % 10.0-14.5 Automated blood platelet count (count/volume) 140 10*3/uL 130-400 Automated blood platelet mean volume measurement 10.8 [foz_us] 7.4-10.4 Automated blood neutrophils/100 leukocytes 48 % 42-75 Automated blood lymphocytes/100 leukocytes 36 % 12-44 Blood monocytes/100 leukocytes 14 % 0-12 Automated blood eosinophils/100 leukocytes 1 % 0-10 Automated blood basophils/100 leukocytes 0 % 0-10 Blood neutrophils automated count (number/volume) 2.3 10*3 1.8-7.8 Blood lymphocytes automated count (number/volume) 1.7 10*3 1.0-4.0 Blood monocytes automated count (number/volume) 0.7 10*3 0.0-1.0 Automated eosinophil count 0.1 10*3/uL 0.0-0.3 Automated blood basophil count (count/volume) 0.0 10*3/uL 0.0-0.1 Comprehensive metabolic panel - 02/07/18 06:06 Serum or plasma sodium measurement (moles/volume) 140 mmol/L 135-145 Serum or plasma potassium measurement (moles/volume) 3.8 mmol/L 3.6-5.0 Serum or plasma chloride measurement (moles/volume) 109 mmol/L 98-107 Carbon dioxide 25 mmol/L 21-32 Serum or plasma anion gap determination (moles/volume) 6 mmol/L 5-14 Serum or plasma urea nitrogen measurement (mass/volume) 6 mg/dL 7-18 Serum or plasma creatinine measurement (mass/volume) 0.67 mg/dL 0.60-1.30 Serum or plasma urea nitrogen/creatinine mass ratio 9 NRG Serum or plasma creatinine measurement with calculation of estimated glomerular filtration rate > NRG Serum or plasma glucose measurement (mass/volume) 110 mg/dL 70-105 Serum or plasma calcium measurement (mass/volume) 8.4 mg/dL 8.5-10.1 Serum or plasma total bilirubin measurement (mass/volume) 1.0 mg/dL 0.1-1.0 Serum or plasma alkaline phosphatase measurement (enzymatic activity/volume) 77 U/L 40-136 Serum or plasma aspartate aminotransferase measurement (enzymatic activity/ volume) 23 U/L 5-34 Serum or plasma alanine aminotransferase measurement (enzymatic activity/volume ) 21 U/L 0-55 Serum or plasma protein measurement (mass/volume) 5.9 g/dL 6.4-8.2 Serum or plasma albumin measurement (mass/volume) 3.6 g/dL 3.2-4.5 LIPID PANEL - 03/18/18 11:53 CHOLESTEROL, TOTAL 188 mg/dL <200 HDL CHOLESTEROL 37 mg/dL >40 TRIGLYCERIDES 372 mg/dL <150 LDL-CHOLESTEROL 101 mg/dL (calc) NRG CHOL/HDLC RATIO 5.1 (calc) <5.0 NON HDL CHOLESTEROL 151 mg/dL (calc) <130 Encounters ACCT No. Visit Date/Time Discharge Status Pt. Type Provider Facility Loc./Unit Complaint [id number] 09/23/2013 08:26:00 09/23/2013 23:59:59 CLS Outpatient ASHLYN SIMON DO [id number] 09/18/2013 09:23:00 09/18/2013 23:59:59 CLS Outpatient CODY HOGUE APRN [id number] 03/18/2018 11:20:00 03/18/2018 23:59:59 CLS Outpatient CODY HOGUE APRN [facility] [id number] 03/18/2018 11:20:00 Document Registration [id number] 02/06/2018 16:48:00 02/08/2018 11:15:00 DIS Inpatient ASHLYN SIMON DO [facility] 4TH ACUTE ALCOHOL WITHDRAWL, HEMORRHOIDS [id number] 10/29/2013 06:12:00 10/29/2013 11:07:00 DIS Outpatient MAINOR VARGAS DO [facility] SDC UMBILICAL HERNIA [id number] 10/22/2013 09:24:00 10/22/2013 23:59:59 CLS Outpatient MAINOR VARGAS DO [facility] PREOP UMBILICAL HERNIA [id number] 09/22/2013 07:58:00 09/22/2013 23:59:59 CLS Outpatient CODY HOGUE APRN [facility] RAD UMBILICAL HERNIA
[2018-04-02] MEDS ORDERED: LACTATED RINGERS 1,000 ML IV STA (07:46)
[2018-04-02 08:15] VITALS: BP 133/91
--- NOTE | 2018-04-02 08:53 | Progress Note-Pre Operative ---
Pre-Operative Progress Note H&P Reviewed The H&P was reviewed, patient examined and no changes noted. Time Seen by Provider: 08:41 Date H&P Reviewed: April 02, 2018 Time H&P Reviewed: 08:43 Pre-Operative Diagnosis: rectal bleed, hemorrhoids GRACE SHANNON DO April 02, 2018 08:53
[2018-04-02] MEDS ORDERED: PROPOFOL INJECTION 50 ML IV ONE ×2 (09:15→09:32)
[2018-04-02] MEDS ORDERED: MIDAZOLAM 2 MG/2 ML (VERSED) VIAL ONE ×2 (09:15)
--- NOTE | 2018-04-02 10:07 | Progress Note-Post Operative ---
Post-Operative Progess Note Surgeon (s)/It Desktop Support Specialist (s) Surgeon GRACE SHANNON DO It Desktop Support Specialist: none Pre-Operative Diagnosis rectal bleed, hemorrhoids Post-Operative Diagnosis Colon polyps Diverticula Internal Hemorrhoids External hemorrhoids Procedure & Operative Findings Date of Procedure 04/02/18 Procedure Performed/Findings Colon with snare Anesthesia Type IV sedation by LICENSING WORKER Estimated Blood Loss Estimated blood loss (mL): scant Specimens/Packing Specimens Removed sigmoid polyp x 2 rectal polyp x 2 GRACE SHANNON DO April 02, 2018 10:07
--- NOTE | 2018-04-02 10:09 | Endoscopy Discharge Instruct ---
Endo Procedure/Findings Findings 1.: Polyp 2.: Diverticulosis 3.: Internal Hemorrhoids Discharge Instructions - Activity: You might feel a little sleepy until tomorrow. This is due to the medicine you received to relax you. Until tomorrow, you should: NOT drive a car, operate machinery or power tools. NOT drink any alcoholic beverages. NOT make any important decisions or sign importortant papers. Do not return to work until tomorrow, unless otherwise instructed. Resume previous activities tomorrow. Diet: Start by taking liquids. If you tolerate liquids, advance to solid food. Make appointment for 2 weeks Notify Physician - If you experience excessive bleeding, unusual abdominal pain, fever, or chest pain, contact your doctor immediately. Follow-Up: - I have received and understand the above instructions and will call my doctor if I have any further questions. Patient Signature Date Nurse Signature Other (Relationship) GRACE SHANNON DO April 02, 2018 10:09
[2018-04-02 10:30] VITALS: BP 123/87
[2018-04-02 11:00] VITALS: BP 122/93
[2018-04-02 11:05] VITALS: BP 122/93
--- NOTE | 2018-04-02 18:28 | OPERATIVE REPORT ---
DATE OF SERVICE: 04/02/2018 PREOPERATIVE DIAGNOSES: 1. Rectal bleed. 2. History of internal and external hemorrhoids. POSTOPERATIVE DIAGNOSES: 1. Colon polyps. 2. Diverticula. 3. Internal hemorrhoids. 4. External hemorrhoids. 5. Rectal bleed. PROCEDURE: Colonoscopy with snare polypectomy. SURGEON: To Kauffman DO PAYROLL EXAMINER: None. ANESTHESIA: IV sedation by PACKER AND CARRY OUT. SPECIMEN: Two polyps from the sigmoid colon and 2 polyps from the rectum. ESTIMATED BLOOD LOSS: Scant. FLUIDS: Per anesthesia. POSTOPERATIVE CONDITION: Stable. INDICATION FOR PROCEDURE: The patient is a 42-year-old male, who had some rectal bleeding and thinks that it is due to internal and external hemorrhoids and needed a workup. FINDINGS: The patient had multiple diverticula throughout the colon. He also had a few polyps, 2 in the sigmoid and 2 in the rectum, possibly a couple others seen, but 4 of them were removed. He had large internal hemorrhoids and he had some external hemorrhoids. PROCEDURE NOTE: After informed consent was obtained, the patient was brought to the endoscopy suite, placed in the bed left lateral decubitus position. He was administered IV sedation by PACKER AND CARRY OUT, who then monitored his vitals the entire time, heart rate, blood pressure and pulse ox and the scope was inserted, pushed in. On the way in, we noticed some diverticula, took some pictures, pushed all the way to about 140 cm, able to get to the cecum, took a picture of the appendiceal orifice and then able to get into terminal ileum and took a picture and then slowly withdrew the scope insufflating to look circumferentially at the rojas looking at the cecum, up the ascending colon to the hepatic flexure and then down the transverse colon, the splenic flexure, into the descending colon and then into the sigmoid. Lot of diverticula seen throughout here and then saw 2 polyps close to the same area, did a snare polypectomy of these in the sigmoid colon, suctioned them up and then continued down into the rectum, saw two more polyps in the rectum, removed both of these with snare polypectomy. Retroflexion in rectal vault, saw some grade II internal hemorrhoids, took a picture of this and then removed the scope, took a picture of an external hemorrhoid. The patient tolerated the procedure. He was recovered in the endoscopy suite. Job ID: [id number] DocumentID: [id number] Dictated Date: 04/02/2018 10:55:51 Fence Gate Assembler Date: 04/02/2018 18:28:08 Dictated By: TO KAUFFMAN DO
== END 2018-04-02 11:05 | disposition home or self-care (01) ==
LOC: ENDO 07:39
PROVIDERS: ATTEND Surgery
DX: K63.5 Polyp of colon (principal); K62.1 Rectal polyp; K64.8 Other hemorrhoids; K64.4 Residual hemorrhoidal skin tags; I10 Essential (primary) hypertension; Z79.899 Other long term (current) drug therapy
CPT/HCPCS: 88305

== ENCOUNTER 2019-08-06 05:31 | Outpatient (CLI) | payer OTHER ==
[~2019-08-06] VITALS: Ht 182.9 cm; Wt 90.0 kg
[2019-08-06] MEDS ORDERED: TERB250T16 PO (12:58)
== END 2019-08-06 13:06 | disposition home or self-care (01) ==
LOC: PREOP 05:31
PROVIDERS: ATTEND Surgery
DX: Z01.818 Encounter for other preprocedural examination (principal)

== ENCOUNTER 2019-08-12 06:42 | Day surgery (SDC) | payer OTHER ==
[~2019-08-12] VITALS: Ht 182.9 cm; Wt 90.0 kg
[2019-08-12] VITALS (11 sets, daily range): BP systolic 98–136; BP diastolic 67–91
[~2019-08-12 06:42] MED LIST changes: +TERB250T16 PO
[2019-08-12] MEDS ORDERED: ONDANSETRON 4 MG/2 ML (SDV) Z0FRAN ONE (07:26)
[2019-08-12] MEDS ORDERED: MIDAZOLAM 2 MG/2 ML (VERSED) VIAL ONE (07:26)
[2019-08-12] MEDS ORDERED: proPOfol 200 MG/20 ML (DIPRIVAN) VIAL IV ONE (07:26)
[2019-08-12] MEDS ORDERED: LIDOCAINE PF 2% 5 ML (XYLOCAINE) VIAL ONE (07:26)
[2019-08-12] MEDS ORDERED: SEVOFLURANE (ULTANE) 15 ML INHAL SOLN ONE (07:26)
[2019-08-12] MEDS ORDERED: fentaNYL INJECTION 100 MCG/2 ML AMP ONE (07:27)
[2019-08-12] MEDS ORDERED: BUP/EPI 0.5% 1:200,000 (SENSORCAINE) 30 ML VIAL ONE (07:40)
[2019-08-12] MEDS ORDERED: ceFAZolin 2 GM IV Premixed 50 ML IV ONE (07:45)
[2019-08-12] MEDS ORDERED: ceFAZolin 2 GM/50 ML NS 50 ML IV ONE (07:45)
[2019-08-12] MEDS: LACTATED RINGERS 1,000 ML IV PRN ×2 (07:52→09:54)
--- NOTE | 2019-08-12 08:16 | Progress Note-Pre Operative ---
Pre-Operative Progress Note H&P Reviewed The H&P was reviewed, patient examined and no changes noted. Time Seen by Provider: 08:06 Date H&P Reviewed: Aug 12, 2019 Time H&P Reviewed: 08:08 Pre-Operative Diagnosis: Internal Hemorrhoids GRACE SHANNON DO Aug 12, 2019 08:16
[2019-08-12] MEDS ORDERED: DEXAMETHASONE 10 MG/ML (DECADRON) 1 ML VIAL ONE (08:27)
[2019-08-12] MEDS ORDERED: HYDROmorphone 2 MG/ML VIAL (DILAUDID) ONE (08:46)
[2019-08-12] MEDS ORDERED: LIDOCAINE UROJET 2% GEL 10 ML PKG ONE (08:53)
--- NOTE | 2019-08-12 09:05 | Progress Note-Post Operative ---
Post-Operative Progess Note Surgeon (s)/Credit Operations Processor (s) Surgeon GRACE SHANNON DO Credit Operations Processor: GEOFFREY Cuadra Pre-Operative Diagnosis Internal Hemorrhoids Post-Operative Diagnosis same Procedure & Operative Findings Date of Procedure 08/12/19 Procedure Performed/Findings internal Hemorrhoidectomy, 3 columns Anesthesia Type LMA Estimated Blood Loss Estimated blood loss (mL): scant Specimens/Packing Specimens Removed internal hemorrhoidal tissue GRACE SHANNON DO Aug 12, 2019 09:05
--- NOTE | 2019-08-12 09:07 | Discharge Inst-Surgical ---
Discharge Inst-Surgical Reconcile Patient Problems Problems Reviewed?: Yes Depart Medication/Instructions New, Converted or Re-Newed RX: Other (OTC meds) Patient Instructions Follow up Appt: Make appointment for 1 week. [phone] Instructions: May shower in 24 hours, or tub bath or soaking. Use incentive spirometer at home as directed. No Smoking Skin/Wound Care: May remove rectal packing in am. Use over the counter lidocaine gel in rectal area for pain. Symptoms to Report: Appetite Changes, Extremity Discoloration, Numbness/Tingling, Swelling Increased, Bleeding Excessive, Eyesight Changes, Pain Increased, Urine Color Change, Constipation(Persistent), Fever over 101 degree F, Pain/Pressure in chest, Urinating Difficulty, Cough Up/Vomit Blood, Heart Beat Irreg/Pounding, Pain/Pressure in jaw, Cramps in feet or legs, Lightheadedness, Pain/Pressure in shoulder, Diarrhea(Persistent), Memory Changes Suddenly, Questions/Concerns, Weight gain consecutive days, Dizziness/Fainting, Nausea/Vomiting, Shortness of Breath, Weight gain over 2 pounds If questions or concerns contact your physician Or seek help at emergency department. Activity Activity as Tolerated: Yes Driving Instructions: You May Drive Diet Discharge Diet: No Restrictions (increased fluids) If Any Problems/Questions/Issu: Contact Your Physician, Go to Emergency Room Skin/Wound Care Infection Signs and Symptoms: Increased Redness, Foul Odor of Wound, Increased Drainage, Skin Itchy or Has a Rash, Increased Swelling, Temperature Above 101 F Bathing Instructions: Alessandra, GRACE Vasques DO Aug 12, 2019 09:07
[2019-08-12] MEDS ORDERED: ONDANSETRON 4 MG/2 ML (SDV) Z0FRAN IVP PRN (09:15)
[2019-08-12] MEDS ORDERED: HYDROmorphone 2 MG/ML VIAL (DILAUDID) IV ONE (09:15)
[2019-08-12] MEDS ORDERED: IBUPROFEN TABLET 200 MG TAB PO ONE ×2 (10:26→10:30)
--- NOTE | 2019-08-12 10:34 | NUR ---
NO ACTIVE BLEEDING AT RECTUM. C/O PRESSURE TYPE DISCOMFORT RATED 6. MOTRIN 600 MG GIVEN PO.
--- NOTE | 2019-08-12 11:13 | NUR ---
PAIN RATED 3. HAS BEEN UP WITH ASSIST, GAIT STEADY. NO BLEEDING AT RECTUM. STATES HE IS READY FOR DISMISSAL.
--- NOTE | 2019-08-12 11:43 | Anesthesia-General Post-Op ---
General Patient Condition Mental Status/LOC: Same as Preop Cardiovascular: Satisfactory Nausea/Vomiting: Absent Respiratory: Satisfactory Pain: Controlled Complications: Absent Post Op Complications Complications None Follow Up Care/Instructions Patient Instructions None needed. Anesthesia/Patient Condition Patient Condition Patient is doing well, no complaints, stable vital signs, no apparent adverse anesthesia problems. No complications reported per nursing. MINH GILLIAM CRNA Aug 12, 2019 11:43
--- NOTE | 2019-08-12 14:56 | OPERATIVE REPORT ---
DATE OF SERVICE: PREOPERATIVE DIAGNOSIS: Internal hemorrhoids. POSTOPERATIVE DIAGNOSIS: Internal hemorrhoids. PROCEDURE: Excision of internal hemorrhoids in the 3 hemorrhoidal columns. SURGEON: To Kauffman DO. SHIFT LEADER: LEONARDO Helms. SPECIMEN: Internal hemorrhoidal tissue. BLOOD LOSS: Scant. FLUIDS: Per anesthesia. POSTOPERATIVE CONDITION: Stable. INDICATION FOR PROCEDURE: The patient is a 43-year-old male, who has internal hemorrhoids that are causing pain and bleeding and wanted to get these fixed. FINDINGS: The patient had some internal hemorrhoids as well as a little bit of external hemorrhoidal skin. Removed the hemorrhoids and sent to pathology. PROCEDURE NOTE: After informed consent was obtained, the patient was brought to the operating room and placed on the table in lithotomy position. He was sterilely prepped and draped in a normal fashion. Local lidocaine was used to perform ischial tuberosity block as well as blocking around the perineal area. Then, on digital exam, no masses felt, saw a large number of internal hemorrhoids. Elected to use a harmonic, started by grasping the hemorrhoid at the 10 o'clock and then using harmonic to come across, removing this hemorrhoid and then saw another hemorrhoid at about the 7 o'clock position and grasped this and then came across it with a harmonic, removed this hemorrhoid and then found another one at the 5 o'clock and then one at the 2 o'clock position, again using the harmonic to cut these off. Mucosa retracted up a little bit, so elected to suture the mucosa down with 2-0 chromic, used five 2-0 chromics to sutured this down. Bleeding was scant and I then elected to place a Gelfoam with [place] jelly into the rectal area and then covered the area with an abdominal pad. The patient tolerated the procedure. Sponge, instrument and needle counts correct at the end of the case. Job ID: [id number] DocumentID: [id number] Dictated Date: 08/12/2019 08:57:48 Position Clerk Date: 08/12/2019 13:21:31 Dictated By: TO KAUFFMAN DO [facility]
== END 2019-08-12 11:13 | disposition home or self-care (01) ==
LOC: SDC 06:42
PROVIDERS: ATTEND Surgery
DX: K64.8 Other hemorrhoids (principal); K64.4 Residual hemorrhoidal skin tags; I10 Essential (primary) hypertension; F17.210 Nicotine dependence, cigarettes, uncomplicated; Z88.8 Allergy status to other drugs, medicaments and biological substances; Z79.899 Other long term (current) drug therapy; Z91.013 Allergy to seafood; Z90.89 Acquired absence of other organs; Z83.3 Family history of diabetes mellitus; Z82.49 Family history of ischemic heart disease and other diseases of the circulatory system; Z80.0 Family history of malignant neoplasm of digestive organs
CPT/HCPCS: 87081

== ENCOUNTER 2023-09-18 14:32 | Emergency (ER) | payer SELFPAY ==
[~2023-09-18] VITALS: Ht 180 cm; Wt 79.0 kg
[~2023-09-18 14:32] MED LIST changes: -LISI10TA2 PO; +LISI10TA25 PO; -TERB250T16 PO; +TERB250T88 PO
[2023-09-18] MEDS ORDERED: NS IV 1000 ML 1,000 ML IV STA (14:59)
--- NOTE | 2023-09-18 15:04 | ED General ---
General Chief Complaint: Detox Stated Complaint: DETOX Nursing Triage Note: ARRIVED VIA AMB TO ROOM 06. STATES HE IS DETOXING FROM ETOH (FIREBALL) AND WOULD LIKE A SCRIPT TO HELP. LAST TIME HE DRANK WAS YESTERDAY. Source of Information: Patient Exam Limitations: No Limitations History of Present Illness Date Seen by Provider: Sep 18, 2023 Time Seen by Provider: 15:01 Initial Comments Patient is a 48-year-old male who presents to ED for detox. Patient states was placed on naltrexone a few months ago for detox but reports no improvement. Patient is requesting a prescription of Antabuse. Patient states he has been having the tremoring with intermittent vomiting and diarrhea over the past several days. Denies of any abdominal pain. Reports 6 days binge of drinking fireball. Last use was yesterday. Denies history of withdrawal seizures. States he has been inpatient the past without much improvement. Does follow provider at [facility] at [place]. Patient denies of any drug use. Denies of any hallucinations. Patient does take medication for high blood pressure. Patient denies fever, chills, headache, visual changes, chest pain or shortness of breath headache, unilateral muscle weakness or sensory changes. Patient states he has been urinating. Allergies and Home Medications Allergies Coded Allergies: fish derived (Unverified Allergy, Mild, 02/07/18) FROM UNCODED ALLERGIES iodine (Unverified Allergy, Mild, 02/07/18) FROM UNCODED ALLERGIES Uncoded Allergies: sea food, iodine (Allergy, Mild, 02/06/18) Patient Home Medication List Home Medication List Reviewed: Yes Lisinopril (Lisinopril) 10 Mg Tablet, 10 MG PO HS, (Reported) Entered as Reported by: REYES TYSON on 03/28/18 1502 Lorazepam (Ativan) 0.5 Mg Tablet, 0.5 MG PO TID PRN for TREMORS Prescribed by: SHAYNE LEVY on 09/18/23 1730 Magnesium Oxide (Magnesium) 400 Mg Magnesium Capsule, 400 MG PO DAILY Prescribed by: SHAYNE LEVY on 09/19/23 1500 Multivits-Minerals/FA/Lycopene (Men's Daily Formula Capsule) 1 Each Capsule, 1 CAP PO HS, (Reported) Entered as Reported by: CARSON DING on 02/07/18 0822 Potassium Chloride (Potassium Chloride) 20 Meq Tablet.er, 20 MEQ PO BID Prescribed by: SHAYNE LEVY on 09/18/23 1648 Terbinafine HCl (Terbinafine HCl) 250 Mg Tablet, 250 MG PO HS, (Reported) Entered as Reported by: REYES TYSON on 08/06/19 1258 Review of Systems Review of Systems Constitutional: No chills, No diaphoresis; malaise, weakness EENTM: No ear pain, No blurred vision, No double vision Respiratory: No cough, No dyspnea on exertion Cardiovascular: No chest pain, No edema Gastrointestinal: No abdominal pain; diarrhea, nausea, vomiting Genitourinary: No decreased output, No discharge Musculoskeletal: No back pain, No joint pain, No joint swelling, No muscle pain Skin: No change in color Psychiatric/Neurological: Denies Anxiety, Denies Depressed, Denies Headache, Denies Numbness, Denies Paresthesia All Other Systems Reviewed Negative Unless Noted: Yes Past Njcrdrz-Dzrsjc-Ljbxez Hx Patient Social History Tobacco Use?: Yes Alcohol Use?: Yes Alcohol type: Hard Liquor Alcohol Frequency: Daily Immunizations Up To Date Tetanus Booster (TDap): Unknown PED Vaccines UTD: No Seasonal Allergies Seasonal Allergies: No Past Medical History Surgeries: Yes (umb hernia) Appendectomy Respiratory: No Currently Using CPAP: No Currently Using BIPAP: No Cardiac: Yes Hypertension Neurological: No Reproductive Disorders: No Sexually Transmitted Disease: No HIV/AIDS: No Genitourinary: No Gastrointestinal: Yes Hemorrhoids Musculoskeletal: No Endocrine: No HEENT: No Cancer: No Did You Recieve Any Treatments: No Psychosocial: No Integumentary: No Blood Disorders: No Adverse Reaction/Blood Tranf: No Family Medical History Diabetes mellitus 19 FATHER ( in 2001 ) No Pertinent Family Hx Physical Exam Vital Signs Vital Signs - First Documented 09/18/23 14:45 Temp 36.3 Pulse 74 Resp 16 B/P (MAP) 186/108 (134) Pulse Ox 97 O2 Delivery Room Air Capillary Refill : Less Than 3 Seconds Height, Weight, BMI Height: 6'0.00" Weight: 186lbs. 0.0oz. [id number]; 24.00 BMI Method:Stated General Appearance: WD/WN, Other (Mild tremoring) Eyes: Bilateral Eye Normal Inspection, Bilateral Eye PERRL, Bilateral Eye EOMI HEENT: PERRL/EOMI, TMs Normal, Normal ENT Inspection, Pharynx Normal Neck: Full Range of Motion, Normal Inspection, Non Tender, Supple Respiratory: Chest Non Tender, Lungs Clear, Normal Breath Sounds, No Accessory Muscle Use, No Respiratory Distress Cardiovascular: Regular Rate, Rhythm, No Edema, No Gallop, No JVD Gastrointestinal: Normal Bowel Sounds, No Organomegaly, No Pulsatile Mass, Non Tender Back: Normal Inspection, No CVA Tenderness Extremity: Normal Capillary Refill, Normal Inspection, Normal Range of Motion Neurologic/Psychiatric: Alert, Oriented x3, No Motor/Sensory Deficits, Normal Mood/Affect, slubber tender II-XII Norm as Tested Skin: Normal Color, Warm/Dry Progress/Results/Core Measures Suspected Sepsis SIRS Temperature: Pulse: 74 Respiratory Rate: 16 Laboratory Tests 09/18/23 15:10: White Blood Count 11.3H Blood Pressure 186 /108 Mean: 134 Laboratory Tests 09/18/23 15:10: Creatinine 0.82, Platelet Count 197, Total Bilirubin 1.6H Results/Orders Lab Results Laboratory Tests Test 09/18/23 15:10 09/18/23 17:45 Range/Units White Blood Count 11.3 H 4.3-11.0 10^3/uL Red Blood Count 5.06 4.30-5.52 10^6/uL Hemoglobin 18.5 H 13.3-17.7 g/dL Hematocrit 51 40-54 % Mean Corpuscular Volume 101 H 80-99 fL Mean Corpuscular Hemoglobin 37 H 25-34 pg Mean Corpuscular Hemoglobin Concent 36 32-36 g/dL Red Cell Distribution Width 13.0 10.0-14.5 % Platelet Count 197 130-400 10^3/uL Mean Platelet Volume 10.3 9.0-12.2 fL Immature Granulocyte % (Auto) 0 % Neutrophils (%) (Auto) 83 H 42-75 % Lymphocytes (%) (Auto) 10 L 12-44 % Monocytes (%) (Auto) 6 0-12 % Eosinophils (%) (Auto) 0 0-10 % Basophils (%) (Auto) 0 0-10 % Neutrophils # (Auto) 9.4 H 1.8-7.8 X 10^3 Lymphocytes # (Auto) 1.1 1.0-4.0 X 10^3 Monocytes # (Auto) 0.7 0.0-1.0 X 10^3 Eosinophils # (Auto) 0.0 0.0-0.3 10^3/uL Basophils # (Auto) 0.0 0.0-0.1 10^3/uL Immature Granulocyte # (Auto) 0.0 0.0-0.1 10^3/uL Sodium Level 140 135-145 MMOL/L Potassium Level 2.7 L 3.6-5.0 MMOL/L Chloride Level 94 L 98-107 MMOL/L Carbon Dioxide Level 29 21-32 MMOL/L Anion Gap 17 H 5-14 MMOL/L Blood Urea Nitrogen 6 L 7-18 MG/DL Creatinine 0.82 0.60-1.30 MG/DL Estimat Glomerular Filtration Rate 108 BUN/Creatinine Ratio 7 Glucose Level 153 H 70-105 MG/DL Calcium Level 9.2 8.5-10.1 MG/DL Corrected Calcium 9.1 8.5-10.1 MG/DL Magnesium Level 1.4 L 1.6-2.4 MG/DL Total Bilirubin 1.6 H 0.1-1.0 MG/DL Aspartate Amino Transf (AST/SGOT) 67 H 5-34 U/L Alanine Aminotransferase (ALT/SGPT) 48 0-55 U/L Alkaline Phosphatase 137 H 40-136 U/L Troponin I < 0.028 <0.028 NG/ML Total Protein 7.6 6.4-8.2 GM/DL Albumin 4.1 3.2-4.5 GM/DL Salicylates Level < 5.0 L 5.0-20.0 MG/DL Acetaminophen Level < 10 L 10-30 UG/ML Serum Alcohol < 10 <10 MG/DL Urine Color ORANGE Urine Clarity CLOUDY Urine pH 7.0 5-9 Urine Specific [place] 1.025 H 1.016-1.022 Urine Protein 2+ H NEGATIVE Urine Glucose (UA) NEGATIVE NEGATIVE Urine Ketones NEGATIVE NEGATIVE Urine Nitrite NEGATIVE NEGATIVE Urine Bilirubin 1+ H NEGATIVE Urine Urobilinogen 1.0 < = 1.0 MG/DL Urine Leukocyte Esterase NEGATIVE NEGATIVE Urine RBC (Auto) 2+ H NEGATIVE Urine RBC 10-25 H /HPF Urine WBC 0-2 /HPF Urine Squamous Epithelial Cells 0-2 /HPF Urine Crystals NONE /LPF Urine Bacteria TRACE /HPF Urine Casts NONE /LPF Urine Mucus NEGATIVE /LPF Urine Culture Indicated NO Urine Opiates Screen NEGATIVE NEGATIVE Urine Oxycodone Screen NEGATIVE NEGATIVE Urine Methadone Screen NEGATIVE NEGATIVE Urine Barbiturates Screen NEGATIVE NEGATIVE Ur Tricyclic Antidepressants Screen NEGATIVE NEGATIVE Urine Phencyclidine Screen NEGATIVE NEGATIVE Urine Amphetamines Screen NEGATIVE NEGATIVE Urine Methamphetamines Screen NEGATIVE NEGATIVE Urine Benzodiazepines Screen POSITIVE H NEGATIVE Urine Cocaine Screen NEGATIVE NEGATIVE Urine Cannabinoids Screen NEGATIVE NEGATIVE My Orders Orders - LYNN CRUMP Acetaminophen (09/18/23 14:59) Salicylate (09/18/23 14:59) Ed Iv/Invasive Line Start (09/18/23 14:59) Lorazepam Injection (Lorazepam Injection (09/18/23 15:00) Ua Culture If Indicated (09/18/23 14:59) Cbc And Automated Diff (09/18/23 14:59) Comprehensive Metabolic Panel (09/18/23 14:59) Alcohol (09/18/23 14:59) Drug Screen Stat (Urine) (09/18/23 14:59) Ns Iv 1000 Ml (Ns Iv 1000 Ml) (09/18/23 14:59) Magnesium (09/18/23 15:41) Ekg Tracing (09/18/23 15:43) Troponin I Dhiraj (09/18/23 15:55) Potassium Chloride (Tablet) (Potassium C (09/18/23 16:00) Potassium Cl 10meq/50ml Ivpb (Kcl 10 Meq (09/18/23 16:00) Ns Iv 500 Ml (Ns Iv 500 Ml) (09/18/23 16:00) Potassium Chloride (Tablet) (Potassium C (09/18/23 16:01) Ns Iv 500 Ml (Ns Iv 500 Ml) (09/18/23 16:33) Medications Given in ED Vital Signs/I&O 09/18/23 09/18/23 14:45 17:42 Temp 36.3 Pulse 74 101 Resp 16 16 B/P (MAP) 186/108 (134) 162/91 Pulse Ox 97 97 O2 Delivery Room Air Room Air Capillary Refill : Less Than 3 Seconds Blood Pressure Mean: 134 ECG Comment Atrial fibrillation, moderate T wave abnormality in lateral leads, 67 bpm, QRS duration 106 MS, QTc 438 MS. Departure Communication (PCP) Patient is a 48-year-old male with a history of chronic alcohol abuse. Patient states he does not want inpatient at this time. Patient is wanting medication for his medical detox. Initially was refusing lab work but did eventually agree. Does follow with [facility] in [place]. Currently on naltrexone with no improvement. Patient with mild tremoring and vomiting at home. No vomiting during during his stay. No history of withdrawal seizures. CBC, CMP, alcohol level, drug screen work-up. There is no evidence of DT. No hallucinations. denies of any drug use. Very minimal tremoring. Did receive Ativan 1 mg with improvement. CIWA 6. White blood count 11.3, hemoglobin 18.5. Chemistry showed a potassium of 2.7, chloride 94, anion gap of 17, total bilirubin 1.6, AST 67, magnesium 1.4. Normal troponin. EKG shows atrial fibrillation [address] deviation moderate T wave abnormality in the lateral leads which is chronic after reviewing previous EKGs. No prolonged QRS or QTc. Patient received IV potassium 10 ml equivalent, was given oral potassium 40 ml equivalent and oral magnesium 400. Received a liter of fluid. Patient was able to urinate which did note some hematuria. Offered a second liter of fluid but patient refused. Patient was wanting to leave. Patient alcohol level normal. Drug screen was unremarkable. Did offer outpatient resources. Will discharge with few days worth of Ativan as needed for symptoms. Suggest following up with your provider for further evaluation. Will discharge with magnesium and potassium. Suggest continue with hydration. If any worsening tremors, confusion or change in symptoms she will need to return back to ED. patient needs to make sure he is staying hydrated and taking supplements that was provided Impression Primary Impression: Alcohol abuse Additional Impression: Hypokalemia Disposition: 01 HOME, SELF-CARE Condition: Stable Departure-Patient Inst. Decision time for Depature: 16:47 Referrals: [facility] (PCP) Primary Care Physician Patient Instructions: Hypokalemia (DC), Alcohol Use Disorder (DC) Add. Discharge Instructions: If any worsening symptoms return back to ED. Recommend staying hydrated. Take Ativan as needed do not drink alcohol with. All discharge instructions reviewed with patient and/or family. Voiced understanding. Scripts Magnesium Oxide (Magnesium) 400 Mg Magnesium Capsule 400 MG PO DAILY, #4 CAP Prov: LYNN CRUMP 09/19/23 Lorazepam (Ativan) 0.5 Mg Tablet 0.5 MG PO TID PRN for TREMORS, #8 TAB Prov: LYNN CRUMP 09/18/23 Potassium Chloride (Potassium Chloride) 20 Meq Tablet.er 20 MEQ PO BID for 3 Days, #6 TAB Prov: LYNN CRUMP 09/18/23 LYNN CRUMP Sep 18, 2023 15:04
[2023-09-18 15:22] LABS: BASOPHILS % (AUTO) 0 % (0-10); EOSINOPHILS % (AUTO) 0 % (0-10); HEMATOCRIT 51 % (40-54); HEMOGLOBIN 18.5 g/dL (13.3-17.7); LYMPHOCYTES # (AUTO) 1.1 X 10^3 (1.0-4.0); LYMPHOCYTES % (AUTO) 10 % (12-44); MEAN CORPUSCULAR HEMOGLOBIN 37 pg (25-34); MEAN CORPUSCULAR HGB CONC 36 g/dL (32-36); MEAN CORPUSCULAR VOLUME 101 fL (80-99); MEAN PLATELET VOLUME 10.3 fL (9.0-12.2); MONOCYTES # (AUTO) 0.7 X 10^3 (0.0-1.0); MONOCYTES % (AUTO) 6 % (0-12); NEUTROPHILS # (AUTO) 9.4 X 10^3 (1.8-7.8); NEUTROPHILS % (AUTO) 83 % (42-75); PLATELET COUNT 197 10^3/uL (130-400); WHITE BLOOD COUNT 11.3 10^3/uL (4.3-11.0)
[2023-09-18 15:35] LABS: ALBUMIN 4.1 GM/DL (3.2-4.5); CHLORIDE 94 MMOL/L (98-107); POTASSIUM 2.7 MMOL/L (3.6-5.0); SODIUM 140 MMOL/L (135-145)
[2023-09-18 15:36] LABS: CALCIUM 9.2 MG/DL (8.5-10.1)
[2023-09-18 15:38] LABS: GLUCOSE 153 MG/DL (70-105); TOTAL PROTEIN 7.6 GM/DL (6.4-8.2)
[2023-09-18 15:39] LABS: CARBON DIOXIDE 29 MMOL/L (21-32)
[2023-09-18 15:40] LABS: BILIRUBIN,TOTAL 1.6 MG/DL (0.1-1.0)
[2023-09-18 15:41] LABS: ALKALINE PHOSPHATASE 137 U/L (40-136); CREATININE SERUM 0.82 MG/DL (0.60-1.30); GFR ESTIMATED 108
[2023-09-18 15:43] LABS: BUN/CREATININE RATIO 7
[2023-09-18 15:44] LABS: SALICYLATE < 5.0 MG/DL (5.0-20.0)
[2023-09-18 15:45] LABS: ALANINE AMINOTRANSFERASE 48 U/L (0-55)
[2023-09-18 15:49] LABS: ACETAMINOPHEN < 10 UG/ML (10-30)
[2023-09-18] MEDS ORDERED: POTASSIUM CL 10MEQ/50ML IVPB 50 ML IV ONE (16:00)
[2023-09-18] MEDS ORDERED: POTASSIUM CHLORIDE 20 MEQ TABLET PO ONE ×2 (16:00→16:01)
[2023-09-18] MEDS ORDERED: NS IV 500 ML 500 ML ONE (16:00)
[2023-09-18] MEDS ORDERED: NS IV 500 ML 500 ML IV STA (16:33)
[2023-09-18] MEDS ORDERED: POTA-330 PO (16:48)
[2023-09-18] MEDS ORDERED: LORA-404 PO (17:30)
[2023-09-18 17:42] VITALS: BP 162/91
[2023-09-18 18:11] LABS: AMPHETAMINE SCREEN, URINE NEGATIVE (NEGATIVE); BARBITURATE SCREEN URINE NEGATIVE (NEGATIVE); CANNABINOID SCREEN, URINE NEGATIVE (NEGATIVE); COCAINE SCREEN URINE NEGATIVE (NEGATIVE); METHADONE STAT NEGATIVE (NEGATIVE); OPIATE SCREEN URINE NEGATIVE (NEGATIVE); OXYCODONE STAT NEGATIVE (NEGATIVE); TRICYCLIC ANTIDEPRESSANTS SCRE NEGATIVE (NEGATIVE)
[2023-09-18 18:21] LABS: BACTERIA,URINE TRACE /HPF; BILIRUBIN,URINE 1+ (NEGATIVE); CLARITY,URINE CLOUDY; COLOR,URINE ORANGE; GLUCOSE, URINE (UA) NEGATIVE (NEGATIVE); KETONES,URINE NEGATIVE (NEGATIVE); LEUKOCYTE ESTERASE ,URINE NEGATIVE (NEGATIVE); NITRITE,URINE NEGATIVE (NEGATIVE); PROTEIN,URINE 2+ (NEGATIVE); SQUAMOUS EPITHELIAL CELL,UR 0-2 /HPF; WBC,URINE 0-2 /HPF
[2023-09-19] MEDS ORDERED: MAGN400C PO (15:00)
== END 2023-09-18 17:42 | disposition home or self-care (01) ==
LOC: EDUNIT# 14:32 → ER 14:35
DX: F10.10 Alcohol abuse, uncomplicated (principal); E87.6 Hypokalemia
CPT/HCPCS: 80053; 80306; 81000; 83735; 84484; 85025; 93005; 96361; 96374; 99284; G0480 ×3; 36415; 80320; 80329